=== PATIENT | male | born 1965 | race Caucasian/White ===

== ENCOUNTER 2020-11-15 15:22 | Emergency (ER) | payer BC, OTHER ==
[2020-11-15] MEDS ORDERED: AUGMENTIN 875-1 EACH PO (18:50)
== END 2020-11-15 19:08 | disposition home or self-care (01) ==
LOC: ER1 15:22
DX: S61.451A Open bite of right hand, initial encounter (principal); E11.9 Type 2 diabetes mellitus without complications; F17.220 Nicotine dependence, chewing tobacco, uncomplicated; Z79.84 Long term (current) use of oral hypoglycemic drugs; Z88.5 Allergy status to narcotic agent; W54.0XXA Bitten by dog, initial encounter; Y92.009 Unspecified place in unspecified non-institutional (private) residence as the place of occurrence of the external cause
CPT/HCPCS: 12002; 73100; 73130; 90715; 99283

== ENCOUNTER → 2022-03-03 | Outpatient (CLI) | payer BC ==
[~2022-03-03] MED LIST: AUGMENTIN 875-1 EACH PO
[2022-03-03 16:48] LABS: BUN/CREATININE RATIO 11 (0-10)
== END ==
LOC: LAB 15:51
PROVIDERS: Family Medicine
DX: R39.12 Poor urinary stream (principal); E11.65 Type 2 diabetes mellitus with hyperglycemia
CPT/HCPCS: 36415; 80053; 80061; 83036; 84153